=== PATIENT | female | born 1985 | race Caucasian/White ===

== ENCOUNTER 2017-12-23 20:16 | Emergency (ER) | payer OTHER, SELFPAY ==
[2017-12-23 20:17] VITALS: BP 149/99; PULSE 71; RESP 18; TEMP 36.2; O2SAT 100; BMI 29.6
--- NOTE | 2017-12-23 21:34 | ED.VISSUMM ---
- ER Visit Summary Date of Service: 12/23/17 Chief Complaint: Upper molar pain History of Present Illness: The patient is a 32 F who presents with left upper molar pain. She is presently on [place], Naprosyn and clindamycin. She states she has no relief. She is scheduled to see an compressor operator portable. She has pain with both cold and hot. She states initial problem started 1 year ago. She underwent emergent repair and subsequently has developed complications. She denies difficulty opening or closing her mouth completely. She denies fever chills. Denies rheumatic fever, murmur, SBE or IV drug use. Physical Examination: Vital signs remarkable blood pressure 149/97. She is afebrile. There is no facial swelling or erythema. There is no trismus. There is no TMJ tenderness. There is no obvious dental carry. Posterior pharynx unremarkable. Trachea midline. Heart lung exam is normal. Test Results: None Emergency Department Course and Treatment: She was told she is on maximal therapy and there is nothing further for me to offers emergency physician. She needs to see her dentist or compressor operator portable for definitive care. Treatment Plan: Continue taking medicines prescribed by dentist and have appointment moved up for compressor operator portable Disposition: Discharge to home Impression: Irreversible pulpitis This note was generated with [employer] dictation software. It may contain incorrect words, spelling, and punctuation that were not noted in review of the chart prior to signing ED Disposition - Plan for ED Patient: Disposition: Home or Assisted Living Chief Complaint: Dental Instructions: ED Tooth Pain Referrals: John Cali MD [Primary Care Provider] - Additional Instructions: Contact her dentist and have your appointment moved up.
--- NOTE | 2017-12-23 21:37 | ED.DCSUM_ITS ---
- ER Visit Summary Date of Service: 12/23/17 Chief Complaint: Upper molar pain History of Present Illness: The patient is a 32 F who presents with left upper molar pain. She is presently on [place], Naprosyn and clindamycin. She states she has no relief. She is scheduled to see an landfill gas collection system operator. She has pain with both cold and hot. She states initial problem started 1 year ago. She underwent emergent repair and subsequently has developed complications. She denies difficulty opening or closing her mouth completely. She denies fever chills. Denies rheumatic fever, murmur, SBE or IV drug use. Physical Examination: Vital signs remarkable blood pressure 149/97. She is afebrile. There is no facial swelling or erythema. There is no trismus. There is no TMJ tenderness. There is no obvious dental carry. Posterior pharynx unremarkable. Trachea midline. Heart lung exam is normal. Test Results: None Emergency Department Course and Treatment: She was told she is on maximal therapy and there is nothing further for me to offers emergency physician. She needs to see her dentist or landfill gas collection system operator for definitive care. Treatment Plan: Continue taking medicines prescribed by dentist and have appointment moved up for landfill gas collection system operator Disposition: Discharge to home Impression: Irreversible pulpitis This note was generated with [employer] dictation software. It may contain incorrect words, spelling, and punctuation that were not noted in review of the chart prior to signing ED Disposition - Plan for ED Patient: Disposition: Home or Assisted Living Chief Complaint: Dental Instructions: ED Tooth Pain Referrals: John Cali MD [Primary Care Provider] - Additional Instructions: Contact her dentist and have your appointment moved up.
[2017-12-23 21:49] VITALS: PULSE 97; RESP 22
--- NOTE | 2017-12-23 21:50 | ED.RN ---
THIS NURSE REVIEWED D/C INSTRUCTIONS WITH PT. PT VERBALIZED UNDERSTANDING OF INSTRUCTIONS. PT DENIES FURTHER NEEDS OR QUESTIONS AT THIS TIME. PT AMBULATES FROM DEPARTMENT ON OWN WITHOUT ASSISTANCE FROM STAFF
== END 2017-12-23 21:51 | disposition home or self-care (01) ==
PROVIDERS: Emergency Provider Emergency Medicine; Family Provider Family Medicine; PCP Family Medicine
DX: K04.02 Irreversible pulpitis (principal); Z72.0 Tobacco use; Z79.2 Long term (current) use of antibiotics; Z79.891 Long term (current) use of opiate analgesic
CPT/HCPCS: 99282

== ENCOUNTER → 2018-06-07 17:14 | Outpatient (CLI) | payer OTHER, SELFPAY ==
[2018-06-07 20:24] LABS: Chlamydia Trachomatis by PCR Negative (Negative); Neisserai gonorrhoeae by PCR Negative (Negative); Probe Check PASS; Sample Adequacy Control PASS; Specimen Processing Control PASS
== END ==
PROVIDERS: Family Provider Family Medicine; PCP Family Medicine; Visit Provider Obstetrics & Gynecology
DX: Z11.3 Encounter for screening for infections with a predominantly sexual mode of transmission (principal)
CPT/HCPCS: 87491; 87591

== ENCOUNTER → 2018-10-31 18:39 | Outpatient (CLI) | payer OTHER, SELFPAY ==
[2018-10-31 10:22] VITALS: BMI 31.1
[2018-10-31 21:26] LABS: Chlamydia Trachomatis by PCR Negative (Negative); Neisserai gonorrhoeae by PCR Negative (Negative); Probe Check PASS; Sample Adequacy Control PASS; Specimen Processing Control PASS
== END ==
PROVIDERS: Family Provider Family Medicine; PCP Family Medicine; Referring Provider Nurse Practitioner Women's Health; Visit Provider Nurse Practitioner Women's Health
DX: Z11.3 Encounter for screening for infections with a predominantly sexual mode of transmission (principal)
CPT/HCPCS: 87070; 87106; 87205; 87491; 87591

== ENCOUNTER → 2018-12-05 10:39 | Outpatient (CLI) | payer OTHER, SELFPAY ==
[2018-12-05 09:30] VITALS: BMI 31.1
[2018-12-05 11:09] LABS: Absolute Lymphocyte Count 2.74 X10^3/ul (0.83-4.51); Absolute Neutrophil Count 5.2 X10^3/uL (2.0-7.7); Basophil# 0.03 X10^3/uL; Basophil% 0.3 % (0-1); Eosinophil# 0.27 X10^3/uL; Hematocrit 41.1 % (37-47); Hemoglobin 12.9 g/dl (12.0-15.0); Lymphocyte # 2.74 X10^3/ul (4.0); Lymphocyte % 30.7 % (19-41); Mean Corp Hgb Conc 31.4 g/gl (32-36); Mean Corpuscular Hgb 27.9 pg (27.0-32.0); Mean Platelet Vol. 9.8 fl (6.2-12.0); Monocyte# 0.69 X10^3/uL; Monocyte% 7.7 % (0-10); Neutrophil # 5.18 X10^3/uL (2.7-7.7); Neutrophil % 58.2 % (47-70); Platelet Count 261 K/mm3 (150-450); RBC Distribution Width CV 13.6 % (11.6-14.6); RBC Distribution Width SD 44.3 fl (35.1-43.9); Red Blood Count 4.62 M/mm3 (4.2-5.4); White Blood Count 8.9 K/mm3 (4.4-11.0)
[2018-12-05 11:15] LABS: POSITIVE COUNT NO; POSITIVE DIFFERENTIAL NO; POSITIVE MORPHOLOGY NO
[2018-12-05 11:28] LABS: Follicle Stimulating Hormone 5.3 mIU/mL; T4 Free Direct 0.78 ng/dL (0.76-1.46); Thyroid Stim Hormone (TSH) 2.85 uIU/mL (0.358-3.74)
[2018-12-07 15:35] LABS: HPV APTIMA, High Risk Negative (Negative)
== END ==
PROVIDERS: Family Provider Family Medicine; PCP Family Medicine; Referring Provider Obstetrics & Gynecology; Visit Provider Obstetrics & Gynecology
DX: Z12.4 Encounter for screening for malignant neoplasm of cervix (principal)
CPT/HCPCS: 36415; 83001; 84146; 84439; 84443; 85025; 87624; 88175; G0145

== ENCOUNTER → 2018-12-06 12:32 | Outpatient (CLI) | payer OTHER, SELFPAY ==
[2018-12-05 09:30] VITALS: BMI 31.1
--- NOTE | 2018-12-06 12:34 | US_ITS ---
STUDY: THYROID ULTRASOUND REASON FOR EXAM: Female, 33 years old. Thyroid disorder, thyromegaly on physical examination. TECHNIQUE: Ultrasound evaluation of the thyroid was performed with real-time and static de [place] ssantos-scale imaging. COMPARISON: None. FINDINGS: RIGHT LOBE: The right thyroid gland measures 4.1 x 1.5 x 0.9 cm, normal size, homogeneous and normal echotexture with normal vascularity. LEFT LOBE: The left thyroid measures 4.1 x 1.4 x 0.8 cm, normal size, homogeneous and normal echotexture with normal vascularity. ISTHMUS: The isthmus measures 3 mm, normal echotexture. . US/Thyroid IMPRESSION: Sonographically normal thyroid gland. Electronically Signed: Britton Hills MD at 9:54 EST Tel , Service support ,
== END ==
PROVIDERS: Family Provider Family Medicine; PCP Family Medicine; Referring Provider Obstetrics & Gynecology; Visit Provider Obstetrics & Gynecology
DX: E01.0 Iodine-deficiency related diffuse (endemic) goiter (principal)
CPT/HCPCS: 76536

== ENCOUNTER 2019-03-20 12:58 | Emergency (ER) | payer OTHER, SELFPAY ==
[2018-12-05 09:30] VITALS: BMI 31.1
[2019-03-20 12:59] VITALS: BP 107/85; PULSE 95; RESP 16; TEMP 36.7; O2SAT 94; BMI 31.5
[2019-03-20 14:22] LABS: Mucous, Urine 0 SEEN /hpf (<or=2+)
[2019-03-20 14:28] LABS: Color, Urine Yellow (Yellow); Glucose, Dipstick Normal (Normal); Ketone-Dipstick Negative (Negative); Leukocyte Esterase-Dipstick 25 /ul (Negative); Nitrite-Dipstick Negative (Negative); Occult Blood-Urine 150 /ul (Negative); Protein-Dipstick Negative (Negative); Urine Bilirubin Dipstick Negative (Negative); Urine Clarity Sl. Cloudy (Clear); Urine Urobilinogen Normal (Normal)
[2019-03-20 14:29] LABS: Absolute Lymphocyte Count 2.83 X10^3/ul (0.83-4.51); Absolute Neutrophil Count 7.5 X10^3/uL (2.0-7.7); Basophil# 0.06 X10^3/uL; Basophil% 0.5 % (0-1); Eosinophil# 0.25 X10^3/uL; Eosinophils% 2.2 % (0-5); Hemoglobin 12.2 g/dl (12.0-15.0); Lymphocyte # 2.83 X10^3/ul (4.0); Lymphocyte % 25.3 % (19-41); Mean Corp Hgb Conc 32.1 g/gl (32-36); Mean Corpuscular Volume 87.2 fL (81-99); Mean Platelet Vol. 9.7 fl (6.2-12.0); Monocyte% 4.5 % (0-10); Neutrophil # 7.51 X10^3/uL (2.7-7.7); Neutrophil % 67.3 % (47-70); Platelet Count 285 K/mm3 (150-450); RBC Distribution Width CV 12.8 % (11.6-14.6); RBC Distribution Width SD 41.3 fl (35.1-43.9); Red Blood Count 4.36 M/mm3 (4.2-5.4); White Blood Count 11.2 K/mm3 (4.4-11.0)
[2019-03-20 14:30] LABS: POSITIVE COUNT NO; POSITIVE DIFFERENTIAL NO; POSITIVE MORPHOLOGY NO
[2019-03-20 14:37] LABS: Anion Gap 8 (5-15); BUN 12 mg/dL (7-18); BUN/Creat Ratio 15.7 RATIO (10-20); Calcium,Total 8.7 mg/dL (8.5-10.1); Chloride 105 mmol/L (98-107); Creatinine, Serum 0.76 mg/dL (0.55-1.02); EST Glomerular Filtration Rate 92 mL/min (>60); Est Glom Filt Rate - Afr Amer 111 mL/min (>60); Estimated Creatinine Clearance 82.49 ml/min; Glucose 87 mg/dL (74-106); Sodium Level 141 mmol/L (136-145)
[2019-03-20 14:55] LABS: Bacteria 1+ /hpf (None Seen); Red Blood Cells-Urine 10-25 SEEN /hpf (0-5); Squamous Epithelial Cells - UA 0-5 SEEN /hpf (5-10); White Blood Cells 0-5 SEEN /hpf (0-5)
[2019-03-20 15:02] LABS: hCG Titer Quant., Serum 44 mIU/mL (<9 non-preg)
[2019-03-20] MEDS: 0.9% Normal Saline 1,000 ML 1000 ML IV (15:09)
--- NOTE | 2019-03-20 15:50 | US_ITS ---
STUDY: PELVIC AND TRANSVAGINAL ULTRASOUND REASON FOR EXAM: Female, 33 years old. Pelvic pain, vaginal bleeding, positive test TECHNIQUE: Pelvic and transvaginal ultrasound was performed. Multiple de [place] santos scale and color duplex Doppler images were obtained. TECHNICAL QUALITY: Adequate. PRIOR ULTRASOUND: None. FINDINGS: There is no endometrial gestational sac. The uterus measures 7.4 x 3.5 x 2.7. There is no demonstrated uterine fibroid. The right ovary measures 2.5 x 1.8 x 1.5 centimeters. There is no right ovarian cyst. There is no visualized right adnexal mass or complex lesion. There is normal ovarian flow. The left ovary measures 2.5 x 2.4 x 1.4 cm. There is no left ovarian cyst. There is no visualized left adnexal mass or complex lesion. There is normal ovarian flow. There is no fluid in the cul de sac. There are no adnexal masses. US/Transvaginal w/Preg US IMPRESSION: No evidence for intrauterine gestational sac, no adnexal mass. The serum beta-hCG level was reported as 44. The findings may represent failed , too early to detect versus ectopic . Serial serum beta-hCG levels and transvaginal ultrasound is recommended for further evaluation. Electronically Signed: Lj Boss, at 16:33 EDT Tel , Service support ,
[2019-03-20 16:38] VITALS: BP 126/94; PULSE 79; RESP 16; O2SAT 98
--- NOTE | 2019-03-20 16:38 | ED.VISSUMM ---
- ER Visit Summary Date of Service: 03/20/19 Chief Complaint: [Lower pelvic pain and vaginal bleeding] History of Present Illness: The patient is a 33 F [presents with abdominal pain for 3 days is been somewhat intermittent. Patient started having vaginal bleeding last evening that was mild. Patient took a home test this morning that was positive. Patient otherwise is never been . She denies any fever. She denies urinary symptoms. She denies vomiting or diarrhea.] Physical Examination: [HEENT-PERRLA, EOMI. Cranial nerves II through XII grossly intact. TMs clear. Mucous membranes moist. No adenopathy. Cardiovascular-regular rate and rhythm without murmur or ectopy Lungs-clear to auscultation, chest wall stable without crepitus or subcu emphysema Abdomen-normoactive bowel sounds, soft. Patient has tenderness to the left lower abdomen and pelvic region. No masses palpated. There is no rebound, rigidity, or perineal signs. No CVA tenderness. Extremities-intact ?4, normal range of motion, normal pulses, atraumatic] Test Results: [CBC with differential obtained showed a white count of 11.2, hemoglobin 12, hematocrit 38, placed 285. Chemistries were normal. Urinalysis had 10-25 RBCs. Type and Rh was A+. Quantitative hCG was 44. Pelvic ultrasound obtained no showed no evidence of intrauterine or evidence of ectopic. Recommended follow-up with serial quantitative hCGs and ultrasounds.] Emergency Department Course and Treatment: [Case was discussed with Dr. Dean who asked that patient follow-up with her office to have a repeat quant in 2 days. ] Treatment Plan: [She was given restrictions as far as lifting for work. Patient given a prescription for [place] for pain.] Disposition: [Discharged home in stable condition. Patient advised to return if worsening pain, persistent heavy bleeding, or condition should worsen anyway.] Impression: [Threatened first trimester Pelvic pain] This note was generated with [employer] dictation software. It may contain incorrect words, spelling, and punctuation that were not noted in review of the chart prior to signing ED Disposition - Plan for ED Patient: Referrals: John Cali MD [Primary Care Provider] -
--- NOTE | 2019-03-20 16:44 | DCINST.ED_ITS ---
ED Disposition - Plan for ED Patient: Instructions: ED Miscarriage Poss Prescriptions: Hydrocodone Bitart/Apap 5-325 [[place] 5MG-325MG] 1 tab PO Q4H PRN PRN 2 Days #10 tab PRN Reason: Pain Referrals: John Cali MD [Primary Care Provider] - Maryanne Dean MD [STAFF PHYSICIAN] - 2 Days Additional Instructions: Need to have a repeat Quantitative HCG level in 2 days
[2019-03-20] MEDS: Acetaminophen 325 MG Tablet 650 MG PO (16:45)
== END 2019-03-20 16:55 | disposition home or self-care (01) ==
LOC: ED 14:32
PROVIDERS: Emergency Provider Emergency Medicine; Family Provider Family Medicine; PCP Family Medicine
DX: O20.0 Threatened abortion (principal); Z72.0 Tobacco use
CPT/HCPCS: 76817; 80048; 81001; 84702; 85025; 86900; 96360; 96361; 99283; J7030; A4216

== ENCOUNTER → 2019-03-22 | Outpatient (CLI) | payer OTHER, SELFPAY ==
[2019-03-20 12:59] VITALS: BMI 31.5
[2019-03-22 13:04] LABS: hCG Titer Quant., Serum 29 mIU/mL (<9 non-preg)
== END | disposition home or self-care (01) ==
PROVIDERS: Family Provider Family Medicine; PCP Family Medicine; Visit Provider Obstetrics & Gynecology
DX: O20.0 Threatened abortion (principal)
CPT/HCPCS: 36415; 84702

== ENCOUNTER 2020-06-12 10:06 | Emergency (ER) | payer SELFPAY ==
[2020-06-12 10:07] VITALS: BP 139/71; PULSE 80; RESP 16; TEMP 36.4; O2SAT 98; BMI 32.9
--- NOTE | 2020-06-12 10:21 | RAD_ITS ---
STUDY: X-RAY - RIGHT HAND, ATTENTION INDEX FINGER REASON FOR EXAM: Female, 34 years old. HIT DISAL FINGER WITH HAMMER TECHNIQUE: 3 view(s) of the finger were obtained. COMPARISON: None. FINDINGS: Normal metacarpal head. Normal metacarpophalangeal joint. Normal proximal phalanx. Normal middle phalanx. Fracture of the tuft of the distal phalanx of the index finger. Normal proximal interphalangeal joint. Normal distal interphalangeal joint. Soft tissue laceration overlying the distal index finger. RAD/Finger(s) Min 2 Views IMPRESSION: Fracture at the tuft of the distal phalanx of the index finger with overlying soft tissue laceration/amputation. Electronically Signed: Mason Callahan, at 10:58 EDT , Service support ,
--- NOTE | 2020-06-12 10:24 | ED.VIS.UPPEX ---
History of Present Illness Chief Complaint: Upper Extremity Injury Narrative: Patient presenting secondary to a right index finger injury. Patient was working on the deck and accidentally struck her right index finger with a hammer accidentally amputating the tip. She is right-hand dominant. There is a moderate amount of pain worse with palpation. Bleeding was controlled with pressure. Patient denies any history of immunosuppression. She denies any anticoagulant use. Past Medical History - Allergies and Home Meds Allergies/Adverse Reactions: Allergies No Known Allergies Allergy (Verified 06/12/20 10:09) Primary Care Physician: John Cali MD [Primary Care Provider] - Prior records reviewed: Yes Past Medical History: - - Hypothyroidism Lives: Spouse/ Significant Other Smoking Status: Never smoker Alcohol: None Drugs: None Review of Systems General: Denies: Fever Musculoskeletal: Reports: Extremity Pain Skin: Reports: Wounds. Denies: Rash Neurological: Denies: Weakness, Numbness Hematologic: Denies: Easy bruising, Easy bleeding Physical Exam Vital Signs/Narrative: Vital Signs Temp Pulse Resp BP Pulse Ox 06/12/20 10:07 97.6 F L 80 16 139/71 H 98 Inital Vital Signs reviewed: Yes Right Finger: - - Examination of the right index finger shows amputation of the tip of the finger sparing the nail. There is some bone exposed. Normal flexion and extension of the finger. Tenderness to palpation of the area. General: Well nourished, Well developed Head: Normocephalic, Atraumatic Eyes: EOMI ENT: No Trauma, Moist Mucous Membranes Neck: Full ROM Cardiovascular: Regular rate, Regular rhythm Respiratory: No distress Skin: Normal color, No rash Neurological: Alert, Oriented x3 Psychological: Normal affect Diagnostic/Tx/Re-eval Clinical Impression(s) from Imaging Studies Finger X-Ray 06/12/20 10:21 IMPRESSION: Fracture at the tuft of the distal phalanx of the index finger with overlying soft tissue laceration/amputation. Electronically Signed: Mason Callahan, at 10:58 EDT , Service support , - Medical Decision Making Patient presented secondary to a index finger injury. Tetanus status was updated. Patient has evidence of a fingertip amputation with a tuft fracture. This was cleansed as noted in the procedure note. Patient was given Duricef. Patient at this point I believe requires the attention of orthopedic hand, and potentially will require either skin grafting versus a revision amputation. Patient will be given a referral to Dr. Kaiser. Procedures Procedure(s): Patient's index finger was anesthetized using bupivacaine and a digital block. Good anesthesia was obtained. Finger was then prepped and draped. The finger was placed under a tourniquet. The fingertip was then scrubbed with Taylor-Felipens, foreign material was removed with forceps. It was copiously irrigated with saline under pressure. Adaptic was placed over the fingertip, and then bulky gauze dressing was placed around this. Tourniquet was released, there was some bleeding which was able to be alleviated by elevating the finger. ED Disposition - Plan for ED Patient: Disposition: Home or Assisted Living Diagnosis: Fingertip amputation Instructions: ED Finger Tip Amputation Open Treatment Prescriptions: Cefadroxil Hydrate [Duricef] 1,000 mg PO BID #20 cap Prescription Printed Referrals: Love Guillen DO [STAFF PHYSICIAN] - As soon as possible
[2020-06-12] MEDS: Diphth,Pertuss(Acell),Tet Vac 0.5 ML Vial IM (10:34)
[2020-06-12] MEDS: Bupivacaine Mpf 0.5% 30 ML VIAL INFILT (10:36)
--- NOTE | 2020-06-12 12:02 | ED.DEP ---
ED Disposition - Plan for ED Patient: Disposition: Home or Assisted Living Diagnosis: Fingertip amputation Instructions: ED Finger Tip Amputation Open Treatment Prescriptions: Cefadroxil Hydrate [Duricef] 1,000 mg PO BID #20 cap Prescription Printed Referrals: Noe Harris MD [STAFF PHYSICIAN] - As soon as possible
[2020-06-12] MEDS: Cefadroxil 500 MG CAPSULE 1000 MG PO (12:27)
[2020-06-12 12:29] VITALS: RESP 14
== END 2020-06-12 12:30 | disposition home or self-care (01) ==
PROVIDERS: Emergency Provider Emergency Medicine; PCP Family Medicine
DX: S68.120A Partial traumatic metacarpophalangeal amputation of right index finger, initial encounter (principal); Z23 Encounter for immunization; W22.8XXA Striking against or struck by other objects, initial encounter; Y93.89 Activity, other specified; Y92.098 Other place in other non-institutional residence as the place of occurrence of the external cause; Y99.8 Other external cause status
CPT/HCPCS: 73140; 90471; 90715; 99284

== ENCOUNTER 2020-09-09 17:46 | Emergency (ER) | payer BC, SELFPAY ==
[2020-07-18 10:32] VITALS: BMI 32.9
[2020-09-09 17:47] VITALS: BP 141/99; PULSE 99; RESP 15; TEMP 36.1; O2SAT 98; BMI 31.5
--- NOTE | 2020-09-09 17:59 | ED.DCSUM_ITS ---
History of Present Illness Chief Complaint: Bite Detail of Chief Complaint: Dog bite right hand Onset: Today, Hours Context: Sudden Onset Timing: Continuous - Pain Quality: Pain Location: Right hand Current Severity: Mild Maximum Severity: Moderate Worsened by: Use of the right hand Relieved by: Nothing Associated Symptoms: No complaint of paresthesia, anesthesia or loss of function Narrative: Patient is a 35-year-old [id number] woman who presents with numerous puncture wound/dog bite to the right hand and specifically over the thenar eminence and the dorsal surface over the first and second metacarpal bone. There is significant soft tissue swelling noted. She denies paresthesia, anesthesia or loss of use. Last tetanus was 3 months ago. She denies allergy to antibiotics. Dog immunizations up-to-date. She was attempting to separate her dogs who were fighting over food. Prior similar symptoms: No Recent Illness/Hospitalization: No - Past Medical History (1) Traumatic amputation of tip of right index finger Status: Acute (2) PMDD (premenstrual dysphoric disorder) Status: Chronic Comment: tati (3) Smoker Status: Chronic Past Medical History - Allergies and Home Meds Allergies/Adverse Reactions: Allergies No Known Allergies Allergy (Verified 09/09/20 17:46) Primary Care Physician: John Cali MD [Primary Care Provider] - Prior records reviewed: Yes Lives: Alone Smoking Status: Never smoker Alcohol: None Drugs: None Review of Systems General: Denies: Chills, Fever, Malaise Gastrointestinal: Denies: Nausea, Vomiting Musculoskeletal: Reports: Swelling, Extremity Pain. Denies: Myalgias, Arthralgias, Neck pain, Back pain Skin: Reports: Wounds. Denies: Rash Neurological: Denies: Headache, Weakness, Parasthesia, Numbness Hematologic: Denies: Easy bruising, Easy bleeding Physical Exam Vital Signs/Narrative: Vital Signs Temp Pulse Resp BP Pulse Ox 09/09/20 17:47 96.9 F L 99 15 141/99 H 98 Inital Vital Signs reviewed: Yes General: Well nourished, Well developed, Acute Distress Head: Normocephalic, Atraumatic Eyes: Perrl, EOMI. Negative for: Pale conjunctiva, Scleral icterus Cardiovascular: Regular rate, Regular rhythm Respiratory: No distress Extremities: Tenderness - There is tenderness over the first metacarpal. There is swelling over the dorsal surface of the hand and thenar eminence. She has multiple puncture wounds. There is dog hair noted in the wounds. She has full active range of motion of thumb. Median, radial and ulnar nerve function intact. Sensa, - - Numerous dog bites/puncture wounds noted to the dorsal and volar surface of the right hand as previously described. Negative for: Nontender Skin: Normal color, No rash, Trauma Neurological: Alert, Oriented x3, Cranial nerves II-XII grossly intact, Normal Strength, Normal Sensation Psychological: Depressed Diagnostic/Tx/Re-eval Chest X-Ray - ED: Read by ED Physician - View x-ray of the hand reveals air between the second and third metacarpal There is no fracture. There is no foreign body i.e. tooth fragment from dog. - Medical Decision Making X-ray was obtained to evaluate for fracture dog tooth fragments versus fracture to the metacarpal bones. If there is no evidence of fracture will treat with oral analgesia and antibiotics. She has seen Dr. santana in the past. She can follow-up with him for wound care and intervention if needed. Plan is clean wounds, dressing, antibiotics and wound check. Will also give a short course of opiate analgesia for pain. ED Disposition - Plan for ED Patient: Disposition: Home or Assisted Living Diagnosis: Dog bite of multiple sites of hand and fingers Instructions: ED BITE Dog Prescriptions: Amox/Clavulanate Tablet [Augmentin Tablet] 875 mg PO Q12H #10 tab Transmission Status: Pending to Support Your App #30 Naproxen [Naprosyn] 500 mg PO BID #14 tab Transmission Status: Pending to [employer] Your App #30 Hydrocodone Bitart/Apap 5-325 [[place] 5MG-325MG] 1 tablet PO Q6H PRN PRN 3 Days #10 tablet PRN Reason: Pain Transmission Status: Sent to [employer] App #30 Referrals: John Cali MD [Primary Care Provider] - 2 Days for wound check Noe Harris MD [STAFF PHYSICIAN] - 2 Days for wound check
--- NOTE | 2020-09-09 18:07 | RAD_ITS ---
STUDY: X-RAY - RIGHT HAND REASON FOR EXAM: Female, 35 years old. Dogbite TECHNIQUE: 3 view(s) of the hand. COMPARISON: None. FINDINGS: There is no evidence of fracture or dislocation. There are no significant degenerative changes. There are no radiodense foreign bodies. There is subcutaneous air noted in the soft tissues overlying the second and third metacarpals. RAD/Hand Min 3 Views IMPRESSION: Soft tissue air overlying the second and third metacarpals, likely due to a puncture wound. No radiodense foreign body. No fracture or dislocation. Electronically Signed: Ángel Cassidy, at 19:41 EDT Tel , Service support ,
[2020-09-09] MEDS: Amox/Clavulanate 875 MG Tablet PO (18:50)
[2020-09-09] MEDS: Naproxen 250 MG Tablet 500 MG PO (18:50)
[2020-09-09] MEDS: HYDROcodone Bitartrate/Apap 5/325 Tablet PO (18:53)
== END 2020-09-09 19:34 | disposition home or self-care (01) ==
PROVIDERS: Emergency Provider Emergency Medicine; PCP Family Medicine
DX: S61.451A Open bite of right hand, initial encounter (principal); W54.0XXA Bitten by dog, initial encounter; Y93.89 Activity, other specified; Y92.89 Other specified places as the place of occurrence of the external cause; Y99.8 Other external cause status
CPT/HCPCS: 73130; 99281